=== PATIENT | female | born 1990 | race Two or more races ===

== ENCOUNTER 2017-01-16 18:15 | Emergency (ER) | payer MEDICAID, OTHER ==
[~2017-01-16] VITALS: Ht 162.6 cm; Wt 72.6 kg
[~2017-01-16 18:15] MED LIST: BACTRIM DS TAB1 EAC1 ORAL; CEPHALEXIN500 MG ORAL; IBUPROFEN600 MG ORAL; KEFLEX500 MG ORAL; NKM; NORCO 5-325 TA1 EACH ORAL; ONDANSETRON ODT4 MG ORAL; VICODIN 5-5001 EACH ORAL
[2017-01-16 18:32] VITALS: BP 146/96
[2017-01-16] MEDS ORDERED: IBUPROFEN600 MG ORAL (19:44)
[2017-01-16] MEDS ORDERED: TAMIFLU75 MG ORAL (19:44)
[2017-01-16] MEDS ORDERED: ZOFRAN4 M3 ORAL (19:46)
[2017-01-16 20:15] VITALS: BP 132/86
[2017-01-16 20:16] VITALS: BP 146/96
--- NOTE | 2017-01-16 20:45 | Emergency Room Report ---
History of Present Illness General Chief Complaint: Flu Like Symptoms Source: Patient Present Illness HPI The patient is a 26 old female presenting with one day of headache, cough, nausea, chills, subjective fever, myalgia for the past day. The patient states that she was in close proximity to a relative was diagnosed with influenza. The patient states that she did not have a flu shot this year. The patient states the headache is a 10/10 dull ache it is felt "all over". The patient denies any other symptoms including shortness of breath, chest pain, abdominal pain, Neck pain or stiffness Allergies: Coded Allergies: No Known Allergies (Unverified , 06/26/13) Patient History Past Medical History: see triage record Pertinent Family History: none Last Menstrual Period: 01/09/17 Now: No Reviewed Nursing Documentation: PMH: Agreed, PSxH: Agreed Nursing Documentation-PMH Past Medical History: No Stated History Review of Systems All Other Systems: negative except mentioned in HPI Physical Exam Vital Signs Date Time Temp Pulse Resp B/P Pulse Ox O2 Delivery O2 Flow Rate FiO2 01/16/17 18:28 99.0 110 16 146/96 99 Room Air Sp02 EP Interpretation: reviewed, normal General Appearance: no apparent distress, alert, GCS 15, non-toxic Head: normocephalic, atraumatic Eyes: bilateral eye PERRL, bilateral eye normal inspection ENT: hearing grossly normal, normal pharynx, no angioedema, normal voice, TMs + canals normal, uvula midline Neck: full range of motion, supple/symm/no masses Respiratory: chest non-tender, lungs clear, normal breath sounds, no wheezing, speaking full sentences Cardiovascular #1: regular rate, rhythm, no edema Gastrointestinal: normal bowel sounds, non tender, soft, non-distended, no guarding, no rebound Musculoskeletal: back normal, gait/station normal, normal range of motion, non- tender Neurologic: alert, oriented x3, responsive, motor strength/tone normal, sensory intact, speech normal Psychiatric: judgement/insight normal, memory normal, mood/affect normal, no suicidal/homicidal ideation Skin: normal color, no rash, warm/dry, well hydrated Lymphatic: no adenopathy Medical Decision Making PA Attestation Dr. Guzman is my supervising physician. Patient management was discussed with my supervising physician Diagnostic Impression: Primary Impression: Influenza ER Course The patient is a 26 -year-old female presenting for flulike symptoms for one day Differential diagnosis include but not limited to influenza, pharyngitis, sinusitis, AOM, bronchitis, PNA Physical exam: The patient is mildly hypertensive and tachycardic. Afebrile. No apparent distress HEENT exam is unremarkable Lungs are clear to auscultation bilaterally Skin is warm and dry. No rash Flu swab is obtained. Patient has chosen to leave before results. The patient is given Zofran and Motrin in the emergency department. Patient will be discharged home with a prescription for Zofran, Motrin, and Tamiflu. Patient is being treated for influenza due to symptoms and recent contact with relatives diagnosed with influenza. ER precautions are given Last Vital Signs Date Time Temp Pulse Resp B/P Pulse Ox O2 Delivery O2 Flow Rate FiO2 01/16/17 20:16 99.0 16 146/96 99 Room Air 01/16/17 20:15 74 Status: improved Disposition: HOME, SELF-CARE Condition: Improved Scripts Ondansetron* (ZOFRAN*) 4 Mg Tablet 4 MG ORAL Q6H Y for Nausea & Vomiting, #20 TAB Prov: REINALDO HARRELL P.A. 01/16/17 Oseltamivir Phosphate (Tamiflu) 75 Mg Capsule 75 MG ORAL TWICE A DAY, #10 CAP Prov: REINALDO HARRELL P.A. 01/16/17 Ibuprofen* (MOTRIN*) 600 Mg Tablet 600 MG ORAL Q8H Y for For Pain, #30 TAB 0 Refills Prov: REINALDO HARRELL P.A. 01/16/17 Patient Instructions: Influenza, Adult Additional Instructions: I discussed my findings with the patient. All questions and concerns have been answered. Treatment and medication compliance have been addressed. I advised the patient that they need to follow up with PMD in 3-5 days. Return to ED if pain remains or worsens, cough worsens or remains, you notice blood in your sputum, you notice wheezing, you experience a fever, or if needed for any reason. Patient verbalized understanding of discharge instructions. REINALDO HARRELL Jan 16, 2017 20:45
== END 2017-01-16 20:16 | disposition home or self-care (01) ==
LOC: EMR 19:01
DX: J11.1 Influenza due to unidentified influenza virus with other respiratory manifestations (principal)
CPT/HCPCS: 86710; 99284